=== PATIENT | female | born 1960 ===

== ENCOUNTER → 2016-12-27 | Outpatient (CLI) | payer OTHER ==
[~2016-12-27] MED LIST: MEDRONATE TC99M/UD<30 MCL ISOTOPE 1 EA INJ INJ ONE
== END | disposition home or self-care (01) ==
LOC: RADMN 10:18
PROVIDERS: ATTEND Orthopaedic Surgery Orthopaedic Surgery of the Spine
DX: M84.58XD Pathological fracture in neoplastic disease, other specified site, subsequent encounter for fracture with routine healing (principal)
CPT/HCPCS: 78306; A9503